=== PATIENT | female | born 1980 | race Caucasian/White ===

== ENCOUNTER 2016-09-18 13:03 | Emergency (ER) | payer OTHER ==
[~2016-09-18] VITALS: Ht 167.6 cm; Wt 86.2 kg
[2016-09-18] MEDS ORDERED: IV NS 0.9% 1,000 ML BAG IV ONE (13:30)
[2016-09-18 13:33] LABS: BASOPHILS # (AUTO) 0.2 /CMM (0.0-0.2); BASOPHILS % (AUTO) 1.7 % (0.0-2.0); EOSINOPHILS # (AUTO) 0.1 /CMM (0.0-0.7); EOSINOPHILS % (AUTO) 0.8 % (0.0-6.0); HEMATOCRIT 38 % (33-45); LYMPHOCYTES # (AUTO) 2.6 /CMM (0.8-4.8); LYMPHOCYTES % (AUTO) 21.9 % (20.0-44.0); MEAN CORPUSCULAR HEMOGLOBIN 33 PG (26.0-33.0); MEAN CORPUSCULAR HGB CONC 35 g/dl (31.0-36.0); MEAN CORPUSCULAR VOLUME 95 fL (82-100); MONOCYTES # (AUTO) 0.7 /CMM (0.1-1.30); MONOCYTES % (AUTO) 5.7 % (2.0-12.0); NEUTROPHILS # (AUTO) 8.5 /CMM (1.8-8.9); NEUTROPHILS % (AUTO) 69.9 % (43.0-81.0); PLATELET COUNT (AUTO) 185 /CMM (150-450); RDW COEFFICIENT OF VARIATION 12.7 (11.5-15.0); RED BLOOD CELL COUNT(AUTO) 3.96 MIL/uL (4.0-5.2); WHITE BLOOD COUNT (AUTO) 12.1 K/uL (4.3-11.0)
[2016-09-18 13:43] LABS: INR 1.02 (0.87-1.13); PROTHROMBIN TIME 10.6 SECS (9.5-12.7)
[2016-09-18 13:44] LABS: CALCIUM, SERUM 7.1 mg/dL (8.5-10.1); CARBON DIOXIDE 38 mmol/L (21-32); CREATININE 1.5 mg/dL (0.6-1.3); GFR 39 mL/min (>60); GLUCOSE 152 mg/dL (74-106); SODIUM SERUM 124 mmol/L (136-145); UREA NITROGEN, BLOOD 9 mg/dL (7-18)
[2016-09-18 13:45] LABS: POTASSIUM 2.1 mmol/L (3.5-5.1)
[2016-09-18 13:46] LABS: CHLORIDE 74 mmol/L (98-107)
[2016-09-18 13:49] LABS: TROPONIN I < 0.017 ng/mL (0.00-0.056)
[2016-09-18] MEDS ORDERED: POTASSIUM CHLORIDE 20 MEQ POWDER PACKET PO ONE (14:00)
--- NOTE | 2016-09-18 14:20 | NUR ---
ASSUMED CARE OF PT. PT APPEARS TO BE RESTING COMFORTABLY. PT IS AA&O X3. PT STATED THAT SHE FEELS MUCH BETTER. PT IS ON THE MONITOR AND CONTINUOUS PULSE OX.
[2016-09-18] MEDS ORDERED: POTASSIUM CHLORIDE 20 MEQ POWDER PACKET ONE (14:25)
[2016-09-18] MEDS ORDERED: IV NS 0.9% 1,000 ML ONE (14:25)
[2016-09-18] MEDS ORDERED: IV SET PRIMARY 1 EA INFUS.SET MC ONE (14:25)
[2016-09-18] MEDS ORDERED: POTASSIUM CHLORIDE 20 MEQ TAB.PRT.SR PO ONE ×2 (15:00→15:13)
[2016-09-18] MEDS ORDERED: POTASSIUM CL. PREMIX PERIPHER. 50 ML IV SCH (15:00)
--- NOTE | 2016-09-18 15:04 | NUR ---
PT AMBULATED TO THE BATHROOM WITH A STEADY GAIT AND THEN RETURNED TO BED #14. NO ATAXIA NOTED. PT WAS RECONNECTED TO THE [facility] AND MONITOR.
[2016-09-18] MEDS ORDERED: IV SET PRIMARY PUMP SET 1 EA INFUS.SET MC ONE (15:13)
[2016-09-18] MEDS ORDERED: POTASSIUM CL. PREMIX PERIPHER. 50 ML ONE (15:13)
[2016-09-18] MEDS ORDERED: IV NS 0.9% 50 ML IV ONE (15:38)
--- NOTE | 2016-09-18 15:43 | NUR ---
PT AMBULATED TO THE BATHROOM WITH A STEADY GAIT.
--- NOTE | 2016-09-18 15:58 | NUR ---
PT RETURNED TO BED #14. PT WAS RECONNECTED TO THE POTASSIUM IVPB.
--- NOTE | 2016-09-18 16:10 | NUR ---
PT STATED THAT SHE ACCIDENTALLY PULLED OUT HER IV WHEN SHE ROLLED OVER IN BED. Catheter intact and site benign. Pressure and 4x4 applied to site. No bleeding noted.
--- NOTE | 2016-09-18 16:12 | NUR ---
PT STATED THAT SHE ACCIDENTALLY PULLED OUT HER IV. DR. CENTENO WAS NOTIFIED THAT PT STILL HAD APPROX 15 MINS LEFT ON THE POTASSIUM INFUSION. DR. CENTENO OK'D PT'D BEING D/C'D HOME AT THIS TIME.
[2016-09-18 16:14] VITALS: BP 135/80
--- NOTE | 2016-09-18 16:15 | NUR ---
PT ASKED TO REST FOR 10 MINS PRIOR TO D/C HOME. PT WAS ALLOWED TO REST FOR 10 MINS MORE. PT REC'D Written and verbal after care instructions. Patient verbalizes understanding of instruction AND RX.
--- NOTE | 2016-09-18 16:23 | NUR ---
Patient discharged to home in stable condition. PT AMBULATED OUT WITH A STEADY GAIT. PT REC'D A PAPER SCRUB TOP AND A REFILLED BOTTLE OF WATER. VSS.
== END 2016-09-18 16:15 | disposition home or self-care (01) ==
LOC: ER 13:07
DX: R07.89 Other chest pain (principal); F10.129 Alcohol abuse with intoxication, unspecified; E87.6 Hypokalemia; I10 Essential (primary) hypertension; Z98.890 Other specified postprocedural states
CPT/HCPCS: 36415; 71010-TC; 80048-TC; 84484-TC; 85025-TC; 85730-TC; A4216; A4606; J3480; J7030; Z7610